=== PATIENT | female | born 2000 | race Hispanic/Latino ===

== ENCOUNTER 2020-07-20 09:03 | Inpatient (IN) | payer OTHER ==
[2020-07-20 10:24] VITALS: BMI 23.9
[2020-07-20] MEDS: Lactated Ringer's 1,000 ML IV SCH ×2 (10:45→12:43)
[2020-07-20] MEDS ORDERED: Diphenoxylate HCl/Atropine Tablet PO PRN (11:06)
[2020-07-20] MEDS ORDERED: Methylergonovine 0.2 MG/ML VIAL IM PRN (11:06)
[2020-07-20] MEDS ORDERED: Ibuprofen 800 MG TAB PO PRN (11:06)
[2020-07-20] MEDS ORDERED: Ondansetron PF 4 MG/2 ML Vial IVP PRN ×3 (11:06→18:55)
[2020-07-20] MEDS ORDERED: Carboprost 250 MCG/ML AMP IM PRN (11:06)
[2020-07-20] MEDS ORDERED: hydrALAZINE 20 MG/ML VIAL SLOW IVP PRN ×2 (11:06→18:55)
[2020-07-20] MEDS ORDERED: Butorphanol Tartrate 1 MG/ML VIAL SLOW IVP PRN (11:06)
[2020-07-20] MEDS ORDERED: HYDROcodone/Acetaminophen 5/325 mg Tablet PO PRN ×3 (11:06→18:55)
[2020-07-20] MEDS ORDERED: Promethazine HCl 25 MG/ML VIAL IM PRN ×3 (11:06→18:55)
[2020-07-20] MEDS ORDERED: Lidocaine 1% (PF) 30 ML VIAL SC PRN (11:06)
[2020-07-20] MEDS ORDERED: Acetaminophen 500 MG TAB PO PRN ×2 (11:06→23:59)
[2020-07-20] MEDS ORDERED: Misoprostol 200 MCG TAB PR PRN (11:06)
[2020-07-20] MEDS ORDERED: NS w/ Oxytocin 30 units 500 ML IVPB PRN (11:15)
[2020-07-20] MEDS ORDERED: Penicillin G Potassium 5 MILL.UNITS in Sodium Chloride 0.9% 100 ML IVPB SCH (11:30)
[2020-07-20] MEDS ORDERED: NS w/ Oxytocin 30 units 500 ML IVPB SCH ×2 (11:30)
[2020-07-20] MEDS ORDERED: Penicillin G 2.5 MILL.units 2.5 MILL.UNITS in Premix Bag 1 BAG IVPB SCH ×2 (11:30→15:30)
[2020-07-20 11:31] LABS: Hemoglobin 8.6 g/dL (12.0-15.5); Mean Corpuscular Hemoglobin 22.1 pg (27.0-33.0); Mean Corpuscular Volume 73.8 fl (81.6-98.3); Platelet Count 217 10x3/uL (150-450); RBC Distribution Width 15.4 % (11.5-14.5); Red Blood Cell (RBC) Count 3.89 10x6/uL (3.90-5.03); White Blood Cell (WBC) Count 12.9 10x3/uL (3.5-10.5)
[2020-07-20] MEDS ORDERED: Fentanyl 4 mcg/Bup 0.1% Cadd 100 ML ONE (12:00)
[2020-07-20 12:02] LABS: Hep B Surf Ag Non-Reactive S/CO (NonReactive)
[2020-07-20 12:03] LABS: HBSAg Index 0.15 S/CO (0-0.99); Syphilis Antibody Nonreactive (Nonreactive); Syphilis Antibody Index 0.04 S/CO (<1.00 Non-Reactive)
[2020-07-20] MEDS ORDERED: Lactated Ringer's 500 ML IV PRN (12:33)
[2020-07-20] MEDS ORDERED: Naloxone HCl 0.4 mg/ml Vial IVP PRN ×2 (12:33)
[2020-07-20] MEDS ORDERED: ePHEDrine 50 MG/ML VIAL SLOW IVP PRN (12:33)
[2020-07-20] MEDS ORDERED: diphenhydrAMINE 50 MG/ML VIAL IVP PRN (12:33)
[2020-07-20] MEDS ORDERED: Acetaminophen 325 MG TAB PO PRN (12:33)
[2020-07-20] MEDS ORDERED: Fentanyl 4 mcg/Bupivacaine 0.1% Cassette 100 ML EPIDURAL SCH (12:45)
[2020-07-20] MEDS ORDERED: Communication Order-Pharmacy FS SCH (12:45)
[2020-07-20] MEDS ORDERED: NS w/ Oxytocin 30 units 500 ML ONE ×2 (15:11→18:10)
[2020-07-20] MEDS ORDERED: Lidocaine 1% (PF) 30 ML VIAL ONE (15:12)
[2020-07-20] MEDS ORDERED: Misoprostol 200 MCG TAB ONE (18:00)
[2020-07-20] MEDS ORDERED: NS / Oxytocin 40 units/1000ml 1,000 ML IV SCH (18:55)
[2020-07-20] MEDS ORDERED: Benzocaine-Menthol 82.5 ML CAN TOP PRN (18:55)
[2020-07-20] MEDS ORDERED: Bisacodyl 10 MG SUPP PR PRN (18:55)
[2020-07-20] MEDS ORDERED: Adacel (T-DAP) 0.5 ML SYRINGE IM ONE (18:55)
[2020-07-20] MEDS ORDERED: Lanolin Ointment 7 GM TUBE TOP PRN (18:55)
[2020-07-20] MEDS ORDERED: Milk Of Magnesia 30 ML UDCUP PO PRN (18:55)
[2020-07-20] MEDS ORDERED: diphenhydrAMINE 25 MG CAP PO PRN (18:55)
[2020-07-20 20:58] LABS: SARS-CoV-2 PCR NAA for Saliva Not Detected (NotDetected)
[2020-07-21] MEDS: Ibuprofen 800 MG TAB PO SCH ×4 (04:16→22:22)
[2020-07-21] MEDS: Docusate Calcium (SURFAK) 240 MG CAP PO SCH ×3 (04:45→22:21)
[2020-07-21 04:58] LABS: Bilirubin Neg (Negative); Blood, Urine 10 (Negative); Clarity Clear (Clear); Glucose, Urine (Dipstick) Normal (Negative); Ketone, Urine Negative (Negative); Leukocyte 25 (Negative); Nitrite Negative (Negative); Protein, Urine (Dipstick) Negative (Neg-Trace); Urobilinogen Normal mg/dL (Less than 2)
[2020-07-21 05:30] LABS: Urine Culture Reflex No No
[2020-07-21 05:43] LABS: Bacteria/HPF Rare-Few HPF (None Seen); Squamous Epithelial 0-3 HPF (0-3); Transitional Epithelial 0-3 HPF (None Seen)
[2020-07-21] MEDS: Ferrous Sulfate 325 MG TAB PO SCH ×3 (09:49→18:36)
[2020-07-22 00:55] VITALS: BP 109/55; TEMP 98.2
[2020-07-22] MEDS: Ibuprofen 800 MG TAB PO SCH (05:54)
[2020-07-22] MEDS: Docusate Calcium (SURFAK) 240 MG CAP PO SCH (10:51)
[2020-07-22] MEDS: Ferrous Sulfate 325 MG TAB PO SCH (10:51)
== END 2020-07-22 13:18 | disposition home or self-care (01) | DRG 807 ==
LOC: CSHLD/OP 09:03 → CSHLD 11:45 → CSHPED 07-21 10:15
PROVIDERS: ADMIT Family Medicine; ATTEND Family Medicine
PROC: 10E0XZZ Delivery of Products of Conception, External Approach (ICD-10-PCS; principal; 2020-07-20)
PROC: 10907ZC Drainage of Amniotic Fluid, Therapeutic from Products of Conception, Via Natural or Artificial Opening (ICD-10-PCS; 2020-07-20)
PROC: 3E033VJ Introduction of Other Hormone into Peripheral Vein, Percutaneous Approach (ICD-10-PCS; 2020-07-20)
PROC: 0W8NXZZ Division of Female Perineum, External Approach (ICD-10-PCS; 2020-07-20)
DX: O99.824 Streptococcus B carrier state complicating childbirth (principal); Z37.0 Single live birth; Z20.822 Contact with and (suspected) exposure to COVID-19; Z3A.39 39 weeks gestation of pregnancy
CPT/HCPCS: 51702; 81001; 85027; 86780; 86850; 86870; 86900; 86901; 86905; 86922; 87086; 87340; 87635; 99285; J2540; J2590; J3490; U0003; U0005

== ENCOUNTER 2023-06-23 21:14 | Emergency (ER) | payer OTHER, SELFPAY ==
[2023-06-23] MEDS ORDERED: diphenhydrAMINE 50 MG/ML VIAL ONE (21:54)
[2023-06-23] MEDS ORDERED: Metoclopramide HCl 10 MG (2 mL) VIAL ONE (21:55)
[2023-06-23 22:14] LABS: BHCG - Serum Negative (NEGATIVE); Pregs Control Background? CLEAR/WHITE (CLR/WHITE); Pregs Control Bar Appear? YES (CONTROL BAR)
[2023-06-23 22:19] LABS: ALT (SGPT) 7 U/L (8-55); AST (SGOT) 12 U/L (5-34); Albumin 4.4 g/dL (3.5-5.0); Alkaline Phosphatase 45 U/L (40-110); Anion Gap 10 mmol/L (10-20); BUN (Urea Nitrogen) 13 mg/dL (7.0-18.7); Bilirubin, Total 0.2 mg/dL (0.2-1.2); Calc. Creatinine Clearance 0 mL/min (70-130); Calcium 8.8 mg/dL (7.8-10.44); Carbon Dioxide 27 mmol/L (22-29); Chloride 106 mmol/L (98-107); Estimated GFR 125; Globulin 2.5 g/dL (2.4-3.5); Glucose 94 mg/dL (70-105); Magnesium 1.8 mg/dL (1.6-2.6); Potassium 3.5 mmol/L (3.5-5.1); Protein, Total 6.9 g/dL (6.0-8.3); Sodium 139 mmol/L (136-145)
[2023-06-23 22:26] LABS: Band 2 % (5-11); Eosinophils 1 % (0-10); Lymphocytes 28 % (21-51); Monocytes 2 % (0-10); Neutrophil 62 % (42-75); Reactive Lymphocytes 5 % (0-10)
[2023-06-23 22:27] LABS: Platelet Adequacy Comment Appears Adequate; RBC Morph Comment Within Normal Limits
[2023-06-23 22:28] LABS: Hematocrit 36.1 % (34.9-44.5); Hemoglobin 12.3 g/dL (12.0-15.5); Mean Corpuscular HGB CONC 34.1 g/dL (32.0-36.0); Mean Corpuscular Hemoglobin 28.7 pg (27.0-33.0); Mean Corpuscular Volume 84.1 fl (81.6-98.3); Mean Platelet Volume 12.3 fl (7.4-10.4); Platelet Count 205 10x3/uL (150-450); RBC Distribution Width 12.5 % (11.5-14.5); Red Blood Cell (RBC) Count 4.29 10x6/uL (3.90-5.03); White Blood Cell (WBC) Count 10.4 10x3/uL (3.5-10.5)
== END 2023-06-23 22:57 | disposition home or self-care (01) ==
LOC: CSHERS 21:14
DX: R51.9 Headache, unspecified (principal); R42 Dizziness and giddiness; R55 Syncope and collapse; Z55.6 Problems related to health literacy
CPT/HCPCS: 80053; 83735; 84703; 85025; 96361; 96374; 96375; J1200; J2765